=== PATIENT | male | born 1940 | race Caucasian/White ===

== ENCOUNTER → 2021-04-11 13:04 | Outpatient (CLI) | payer MEDICARE, BC, SELFPAY ==
--- NOTE | 2021-04-11 13:06 | DI.RAD.S_ITS ---
PROCEDURE: XR FOOT LT MIN 3V INDICATIONS: swelling TECHNIQUE: 3 views of the foot were acquired. COMPARISON: [facility], CR, XR ANKLE LT MIN 3V, 04/11/2021, 14:13. FINDINGS: Bones: No fractures or dislocations. No suspicious bony lesions. Age-appropriate bony degenerative changes are seen. Plantar and Achilles calcaneal spurs are seen. Soft tissues: Mild generalized soft tissue swelling can be seen. Calcification is noted of the distal arteries. This degree of calcification is typically seen in patients with a long-standing history of diabetes. Please correlate with a history of such. IMPRESSION: Generalized soft tissue swelling, without a focal bony abnormality. If there is strong suspicion for developing osteomyelitis in this patient with presumed diabetes, please consider a dedicated MRI without and with contrast for further evaluation (assuming that there is no contraindication to MRI). Dictated by: Checo Field M.D. on 04/11/2021 at 13:31 Approved by: Checo Field M.D. on 04/11/2021 at 13:32
--- NOTE | 2021-04-11 13:06 | DI.RAD.S_ITS ---
PROCEDURE: XR ANKLE LT MIN 3V INDICATIONS: pain in foot and ankle TECHNIQUE: 3 views of the ankle were acquired. COMPARISON: [facility], CR, XR FOOT LT MIN 3V, 04/11/2021, 14:13. FINDINGS: Bones: No acute fractures or dislocations. Apparent remote avulsion fractures can be seen involving the distal medial and lateral malleoli. Ankle mortise is normally aligned. No suspicious bony lesions. Soft tissues: Generalized soft tissue swelling can be seen. Calcification is noted of the distal arteries. This degree of calcification is typically seen in patients with a long-standing history of diabetes. Please correlate with a history of such. IMPRESSION: Generalized soft tissue swelling, without a focal, acute abnormality seen by plain film. Dictated by: Checo Field M.D. on 04/11/2021 at 13:33 Approved by: Checo Field M.D. on 04/11/2021 at 13:34
== END ==
PROVIDERS: Referring Provider Physician Assistant; Visit Provider Physician Assistant
DX: R60.9 Edema, unspecified (principal); M25.572 Pain in left ankle and joints of left foot; M79.89 Other specified soft tissue disorders; M77.32 Calcaneal spur, left foot
CPT/HCPCS: 73610; 73630